=== PATIENT | male | born 1985 | race Caucasian/White ===

== ENCOUNTER 2017-05-31 12:54 | Emergency (ER) | payer OTHER ==
[2017-05-31] MEDS ORDERED: SODIUM CHLORIDE 0.9% 1000ML 1,000 ML IV SCH (12:58)
[2017-05-31] MEDS ORDERED: NiCARDipine IV 25 MG in SODIUM CHLORIDE 0.9% 250ML 240 ML IV STA (13:05)
--- NOTE | 2017-05-31 13:06 | EMERGENCY ROOM VISIT NOTE ---
History Report prepared by Lashaunibe: Edwina Evans Under the Supervision of: Dr. Joseph Peace M.D. First contact with patient: 12:55 Chief Complaint: STROKE SYMPTOMS Stated Complaint: stroke alert History of Present Illness The patient is a 32 year old male who presents to the Emergency Room with complaints of worsening stroke symptoms. He was brought to the ED via EMS. The patient is deaf and an charge rn was used via video chat in the ED. 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 He denies taking any medications today and denies any drug or alcohol use. EMS reports the patient was refereeing a game approximately 1 month ago when he was hit in the head with a ball. He felt fine afterwards and continued his usual routine. This morning he was refereeing another game when he was hit in the head again. On EMS arrival, he displayed rapidly deteriorating symptoms or slurred speech, left arm weakness, left leg weakness and difficulty walking. His weakness worsened en route, though EMS states he seems more "with it" in the ED than earlier when they picked him up. The patient complains of a 5/10 headache and states he cannot feel the left side of his body. He reports he has experienced the headache since the initial head injury 1 month ago. 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 A limited number of symptoms were reviewed due to the patients history of deafness and critical nature of stated complaint. Past Medical & Surgical Medical Problems: (1) Deafness Social History Alcohol Use: none Drug Use: none Marital Status: single Housing Status: lives with family Occupation Status: unemployed Physical Exam Vital Signs Date Time Temp Pulse Resp B/P (MAP) Pulse Ox O2 Delivery O2 Flow Rate FiO2 05/31/17 13:53 178/128 05/31/17 13:36 72 21 174/149 95 Room Air 05/31/17 13:35 72 17 198/143 96 05/31/17 13:34 68 21 203/149 95 Room Air 05/31/17 13:27 67 13 205/154 94 Room Air 05/31/17 13:24 70 15 199/146 93 Room Air 05/31/17 13:19 76 05/31/17 12:55 82 20 213/132 95 Room Air Physical Exam GENERAL: Patient is well appearing and in no acute distress. EYES: No scleral icterus, unremarkable pupils. ENT: Mucous membranes moist, no nasal congestion. NECK: No masses appreciated, no meningismus, trachea is midline. RESPIRATORY: No dyspnea. Clear to auscultation and equal bilaterally. No wheeze , no rhonchi. CARDIOVASCULAR: Regular rate and rhythm. No murmurs, rubs, gallops appreciated. GASTROINTESTINAL: Abdomen soft, nontender, no peritonitis. Bowel sounds positive. No masses appreciated. BACK: No midline tenderness, no CVA tenderness EXTREMITIES: Completely flaccid left arm, faint twitching of muscles in left leg , decreased sensation in left arm. NEUROLOGIC: Patient follows commands properly, slurred simple speech, deaf, GCS 15. Mild drooping of left face, decreased sensation of face, complete neglect of left side of body. SKIN: No rash, no jaundice, no diaphoresis. Medical Decision & Procedures ER Provider Diagnostic Interpretation: Radiology results and stated below per my review and radiologist interpretation: CT SCAN OF THE BRAIN WITHOUT IV CONTRAST CLINICAL HISTORY: Left-sided weakness. COMPARISON STUDY: No priors. TECHNIQUE: Unenhanced axial CT scan of the brain is performed from the vertex to the skull base. A dose lowering technique was utilized adhering to the principles of ALARA. CT DOSE: 638.56 mGycm FINDINGS: Brain parenchyma: There is an approximately 4 x 2.5 cm hemorrhage centered in the right basal ganglia with surrounding edema. This mildly effaces the right lateral ventricle. No additional focus of hemorrhage is identified. There is no midline shift or evidence of acute territorial ischemia by CT criteria. Anne-white matter is preserved. No extra-axial fluid collection is seen. Ventricles, sulci, cisterns: Normal in configuration. Intracranial vasculature: The visualized intracranial vasculature at the skull base is normal in appearance. Calvarium: Unremarkable. Sinuses and mastoids: Trace mucosal thickening is seen in the maxillary antra. The remaining visualized paranasal sinuses are clear. The mastoid air cells are well pneumatized. Orbits: The bony orbits are grossly intact. IMPRESSION: 1. There is an approximately 4 x 2.5 cm hemorrhage centered in the right basal ganglia with surrounding edema. 2. No additional hemorrhage is seen. 3. There is no mass effect or evidence of acute territorial ischemia by CT criteria. Electronically signed by: Julio Santiago M.D. 05/31/2017 1:10 PM Laboratory Results 05/31/17 13:25 Red Blood Count 5.28, Mean Corpuscular Volume 81.3, Mean Corpuscular Hemoglobin 30.1, Mean Corpuscular Hemoglobin Concent 37.1, Mean Platelet Volume 11.9, Neutrophils (%) (Auto) 57.8, Lymphocytes (%) (Auto) 31.7, Monocytes (%) (Auto) 8.1, Eosinophils (%) (Auto) 1.7, Basophils (%) (Auto) 0.5, Neutrophils # (Auto) 3.35, Lymphocytes # (Auto) 1.84, Monocytes # (Auto) 0.47, Eosinophils # (Auto) 0.10, Basophils # (Auto) 0.03 05/31/17 13:25 Test 05/31/17 13:09 05/31/17 13:10 05/31/17 13:25 05/31/17 13:31 Bedside Prothrombin Time INR 1.1 (0.9-1.1) Bedside Glucose 90 mg/dl (70-99) White Blood Count 5.80 K/uL (4.8-10.8) Red Blood Count 5.28 M/uL (4.7-6.1) Hemoglobin 15.9 g/dL (14.0-18.0) Hematocrit 42.9 % (42-52) Mean Corpuscular Volume 81.3 fL (80-100) Mean Corpuscular Hemoglobin 30.1 pg (25-34) Mean Corpuscular Hemoglobin Concent 37.1 g/dl (32-36) Platelet Count 155 K/uL (130-400) Mean Platelet Volume 11.9 fL (7.4-10.4) Neutrophils (%) (Auto) 57.8 % Lymphocytes (%) (Auto) 31.7 % Monocytes (%) (Auto) 8.1 % Eosinophils (%) (Auto) 1.7 % Basophils (%) (Auto) 0.5 % Neutrophils # (Auto) 3.35 K/uL (1.4-6.5) Lymphocytes # (Auto) 1.84 K/uL (1.2-3.4) Monocytes # (Auto) 0.47 K/uL (0.11-0.59) Eosinophils # (Auto) 0.10 K/uL (0-0.5) Basophils # (Auto) 0.03 K/uL (0-0.2) RDW Standard Deviation 40.1 fL (36.4-46.3) RDW Coefficient of Variation 13.7 % (11.5-14.5) Immature Granulocyte % (Auto) 0.2 % Immature Granulocyte # (Auto) 0.01 K/uL (0.00-0.02) Red Blood Cell Morphology Unremarkable Prothrombin Time 10.6 SECONDS (9.0-12.0) Prothromb Time International Ratio 1.0 (0.9-1.1) Activated Partial Thromboplast Time 26.8 SECONDS (21.0-31.0) Partial Thromboplastin Ratio 1.0 Estimated GFR () 95.4 Estimated GFR (Non- 82.3 BUN/Creatinine Ratio 10.8 (10-20) Calcium Level 8.7 mg/dl (8.5-10.1) Magnesium Level 2.2 mg/dl (1.8-2.4) Total Creatine Kinase 59 U/L (39-308) Creatine Kinase MB 0.8 ng/ml (0.5-3.6) Creatine Kinase MB Ratio 1.4 (0-3.0) Troponin I < 0.015 ng/ml (0-0.045) Ethyl Alcohol mg/dL < 3.0 mg/dl (0-3) Bedside Hemoglobin 15.0 g/dl (14.0-18.0) Bedside Hematocrit 44 % (42-52) Bedside Sodium 140 mEq/L (135-144) Bedside Potassium 3.9 mEq/L (3.3-5.0) Bedside Chloride 101 mEq/L (101-112) Bedside Total CO2 25 mEq/l (24-31) Anion Gap 19.0 mmol/L (16-25) Bedside Blood Urea Nitrogen 13 mg/dl (7-18) Bedside Creatinine 1.1 mg/dl (0.6-1.3) Bedside Glucose (other) 93 mg/dl (70-99) Bedside Ionized Calcium (Shabbir) 1.18 mmol/l (1.12-1.32) Laboratory results as reviewed by me. Medications Administered Medications (Trade) Dose Ordered Sig/Tl Route Start Time Stop Time Status Last Admin Dose Admin Nicardipine HCl 25 mg/Sodium Chloride 250 ml @ 0 mls/hr Q0M STAT IV 05/31/17 13:05 05/31/17 13:07 DC 05/31/17 13:30 30 MLS/HR ED Course 1255: The patient was evaluated in room A1. A complete history and physical exam was performed. 1258: NSS 1000 ml @ 50 mls/hr IV. 1302: CT scan of the head was performed. 1303: Stroke alert canceled due to CT scan findings. 1305: Nicardipine HCl 25 mg/NSS 250 ml @ 0 mls/hr IV. 1321: I discussed the patients case with Dr. Haley, [facility] ED. He has accepted the patient as a transfer to the [facility] ED. 1328: I discussed the patients case with Dr. Vences, [facility] Neurosurgery. He states to hold off on Decadron and agrees with controlling the patients blood pressure and getting him transported to [facility] as quickly as possible. 1334: The patients BP on Cardene initially mildly improved, we are increasing the Cardene drip. 1345: I reevaluated the patient. His BP is somewhat elevated, so we have increased the Cardene. The flight crew is at the bedside. 1355: I reevaluated the patient. His blood pressure is starting to trend down. [facility] is preparing to leave. He had some mild difficulty with clearing a secretion, but he appears well right now. 1420: I spoke with the patients sister in law, Lauren. I discussed the patients results and his transfer to [facility] and she verbalized complete understanding and agreement. Medical Decision 32 yr old male with no PMH other than he is deaf arrives from field via EMS ( med command by me in route) and taken directly to CT for imaging brain as he is having acute left side weakness. Started 11am thus given report stroke alert called prior to arrival. CT head reveals ICH and thus stroke alert cancelled ( cancelled CTA head/neck as well) and [facility] contacted (closest [facility] facility to his home address and here). Patient was started on Cardene to begin lowering his hypertensive issue. He is GCS 15 and interacting, able to clear his secretions and breathing comfortably. He does not have evidence of trauma though there is vague story of having been struck by ball or something a few weeks ago. Labs unremarkable. Discussed with ED and NRSG at [facility] who agree with transfer and will go by air. Patient re-evaluated many times throughout ED stay and protecting airway. Stable at time of transfer via [facility]. Head Trauma GCS Score: 15 Medication Reconcilliation Current Medication List: was personally reviewed by me Blood Pressure Screening Patient's blood pressure: Elevated blood pressure Blood pressure disposition: Referred to PCP The patients elevated blood pressure will be further managed by [facility]. Consults Time Called: 1318 Consulting Physician: Dr. Haley, [facility] ED Returned Call: 1321 I discussed the patients case with Dr. Haley, [facility] ED. He has accepted the patient as a transfer to the [facility] ED. Additional Consults: Time Called: 1325 Consulted Physician: Dr. Vences, [facility] Returned Call: 1328 Additional Comments: I discussed the patients case with Dr. Vences, [facility]. He states to hold off on Decadron and agrees with controlling the patients blood pressure and getting him transported to [facility] as quickly as possible. Impression Primary Impression: Basal ganglia hemorrhage Additional Impressions: Left-sided weakness Hypertension Critical Care I have personally spent greater than 45 minutes of critical care time in the direct management of this patient. This was a life/limb threatening event. This includes time spent evaluating patient, direct bedside care, chart review, placing orders, interpretation of diagnostic studies, discussion with consultants, patient, and family members, as well as other required patient management activities. This 45 minutes is in excess of all separately billable procedures. Scribe Attestation The scribe's documentation has been prepared under my direction and personally reviewed by me in its entirety. I confirm that the note above accurately reflects all work, treatment, procedures, and medical decision making performed by me. Departure Information Dispostion Transfer Acute Care Facility (The patient has been accepted as a transfer to [facility]) Referrals No Doctor, Assigned (PCP) Patient Instructions My [facility] Problem Qualifiers
--- NOTE | 2017-05-31 13:11 | DIAGNOSTIC IMAGING REPORT ---
CT SCAN OF THE BRAIN WITHOUT IV CONTRAST CLINICAL HISTORY: Left-sided weakness. COMPARISON STUDY: No priors. TECHNIQUE: Unenhanced axial CT scan of the brain is performed from the vertex to the skull base. A dose lowering technique was utilized adhering to the principles of ALARA. CT DOSE: 638.56 mGycm FINDINGS: Brain parenchyma: There is an approximately 4 x 2.5 cm hemorrhage centered in the right basal ganglia with surrounding edema. This mildly effaces the right lateral ventricle. No additional focus of hemorrhage is identified. There is no midline shift or evidence of acute territorial ischemia by CT criteria. Anne-white matter is preserved. No extra-axial fluid collection is seen. Ventricles, sulci, cisterns: Normal in configuration. Intracranial vasculature: The visualized intracranial vasculature at the skull base is normal in appearance. Calvarium: Unremarkable. Sinuses and mastoids: Trace mucosal thickening is seen in the maxillary antra. The remaining visualized paranasal sinuses are clear. The mastoid air cells are well pneumatized. Orbits: The bony orbits are grossly intact. IMPRESSION: 1. There is an approximately 4 x 2.5 cm hemorrhage centered in the right basal ganglia with surrounding edema. 2. No additional hemorrhage is seen. 3. There is no mass effect or evidence of acute territorial ischemia by CT criteria. Electronically signed by: Julio Santiago M.D. 05/31/2017 1:10 PM Dictated Date/Time: 05/31/2017 1:07 PM
[2017-05-31 13:36] VITALS: PULSE 72; O2SAT 95
[2017-05-31 13:44] LABS: ISTAT CREATININE 1.1 mg/dl (0.6-1.3); ISTAT IONIZED CALCIUM 1.18 mmol/l (1.12-1.32); ISTAT POTASSIUM 3.9 mEq/L (3.3-5.0)
[2017-05-31 13:47] LABS: PTT PATIENT 26.8 SECONDS (21.0-31.0)
[2017-05-31 13:53] VITALS: BP 178/128
[2017-05-31 13:57] LABS: BLOOD UREA NITROGEN 13 mg/dl (7-18); CALCIUM 8.7 mg/dl (8.5-10.1); CARBON DIOXIDE 27 mmol/L (21-32); CREATININE 1.16 mg/dl (0.60-1.40); GLUCOSE 87 mg/dl (70-99); POTASSIUM 3.7 mmol/L (3.5-5.1); SODIUM 136 mmol/L (136-145)
[2017-05-31 14:02] LABS: CKMB 0.8 ng/ml (0.5-3.6)
[2017-05-31 14:14] LABS: BASO % 0.5 %; BASO ABS # 0.03 K/uL (0-0.2); EOS % 1.7 %; HEMATOCRIT 42.9 % (42-52); HEMOGLOBIN 15.9 g/dL (14.0-18.0); IG# 0.01 K/uL (0.00-0.02); LYMPH % 31.7 %; LYMPH ABS # 1.84 K/uL (1.2-3.4); MEAN CELL VOLUME 81.3 fL (80-100); MEAN CORPUSCULAR HEMOGLOBIN 30.1 pg (25-34); MEAN CORPUSCULAR HGB CONC 37.1 g/dl (32-36); MEAN PLATELET VOLUME 11.9 fL (7.4-10.4); MONO % 8.1 %; MONO ABS # 0.47 K/uL (0.11-0.59); NEUT % 57.8 %; NEUT ABS # 3.35 K/uL (1.4-6.5); PLATELET COUNT 155 K/uL (130-400); RED CELL DISTRIBUTION WIDTH CV 13.7 % (11.5-14.5); RED CELL DISTRIBUTION WIDTH SD 40.1 fL (36.4-46.3)
== END 2017-05-31 14:00 | disposition short-term general hospital (02) ==
LOC: C.EDA 12:55
DX: I61.0 Nontraumatic intracerebral hemorrhage in hemisphere, subcortical (principal); M62.81 Muscle weakness (generalized); I10 Essential (primary) hypertension; R26.2 Difficulty in walking, not elsewhere classified; H91.3 Deaf nonspeaking, not elsewhere classified